=== PATIENT | female | born 1995 | race Caucasian/White ===

== ENCOUNTER 2017-06-26 09:59 | Emergency (ER) | payer MEDICAID, OTHER ==
[~2017-06-26] VITALS: Ht 177.8 cm; Wt 100.0 kg
[~2017-06-26 09:59] MED LIST: DEPO400I IM; SERT100 PO
[2017-06-26 10:05] VITALS: BP 143/81; PULSE 107; RESP 20; TEMP 98.6; O2SAT 98
--- NOTE | 2017-06-26 11:11 | PD ---
HPI Chief Complaint: GI Complaint Time Seen by Provider: 11:11 Travel History International Travel<30 days: No Contact w/Intl Traveler<30days: No Traveled to known affect area: No History of Present Illness HPI 21-year-old female came to the emergency room with history of vomiting and diarrhea that started at midnight last night. She is here with her . Patient says that she has been having vomiting alternating with diarrhea every hour. She has vomited about 6 times and diarrhea 4-5 times. No known sick contacts. Upon asking she said there would be a slight chance of her being . Patient was slightly tachycardic in triage. She is awake and answering questions appropriately. She expresses slight abdominal discomfort mostly associated with vomiting. She is otherwise a healthy person. The discomfort is generalized and nonradiating. [facility] Past Medical History Narrative Medical List of her past medical, surgical, social and family history is reviewed from the nursing note. Diminished Hearing: No ?: Unknown LMP: 05/22/17 Social History Alcohol Use: No Tobacco Use: No Substance Use: No Allergies-Medications (Allergen,Severity, Reaction): Coded Allergies: No Known Allergies (Unverified Adverse Reaction, Unknown, 06/26/17) Comments No known drug allergies. Reported Meds & Prescriptions Reported Meds & Active Scripts Active Zofran Odt (Ondansetron Odt) 4 Mg Tab 4 Mg SL Q6HR PRN Reported Depo-Provera (Medroxyprogesterone Acetate) 400 Mg/Ml Inj 200 Mg IM ONCE Zoloft (Sertraline HCl) 100 Mg Tab 100 Mg PO DAILY Narrative Medication List of her home medications reviewed from the nursing note. Review of Systems Except as stated in HPI: all other systems reviewed are Neg Gastrointestinal: Positive: Nausea, Vomiting, Diarrhea Physical Exam Narrative GENERAL: Awake, alert, mildest SKIN: Focused skin assessment warm/dry. HEAD: Atraumatic. Normocephalic. EYES: Pupils equal and round. No scleral icterus. No injection or drainage. ENT: No nasal bleeding or discharge. Dry mucous membrane. NECK: Trachea midline. No JVD. CARDIOVASCULAR: Regular rate and rhythm. No murmur appreciated. RESPIRATORY: No accessory muscle use. Clear to auscultation. Breath sounds equal bilaterally. GASTROINTESTINAL: Abdomen soft, non-tender, nondistended. Hepatic and splenic margins not palpable. MUSCULOSKELETAL: No obvious deformities. No clubbing. No cyanosis. No edema. NEUROLOGICAL: Awake and alert. No obvious cranial nerve deficits. Motor grossly within normal limits. Normal speech. PSYCHIATRIC: Appropriate mood and affect; insight and judgment normal. Data Data Last Documented VS Orders Orders Basic Metabolic Panel (Bmp) (06/26/17 11:15) Complete Blood Count With Diff (06/26/17 11:15) Iv Access Insert/Monitor (06/26/17 11:15) Ecg Monitoring (06/26/17 11:15) Oximetry (06/26/17 11:15) Ondansetron Inj (Zofran Inj) (06/26/17 11:15) Sodium Chlor 0.9% 1000 Ml Inj (Ns 1000 M (06/26/17 11:15) Sodium Chloride 0.9% Flush (Ns Flush) (06/26/17 11:15) Ed Urine Pregnancytest Poc (06/26/17 11:15) Ed Discharge Order (06/26/17 13:03) Labs Laboratory Tests Test 06/26/17 11:34 White Blood Count 14.3 TH/MM3 Red Blood Count 5.20 MIL/MM3 Hemoglobin 14.5 GM/DL Hematocrit 43.3 % Mean Corpuscular Volume 83.4 FL Mean Corpuscular Hemoglobin 28.0 PG Mean Corpuscular Hemoglobin Concent 33.5 % Red Cell Distribution Width 13.3 % Platelet Count 237 TH/MM3 Mean Platelet Volume 8.4 FL Neutrophils (%) (Auto) 91.3 % Lymphocytes (%) (Auto) 3.6 % Monocytes (%) (Auto) 4.6 % Eosinophils (%) (Auto) 0.1 % Basophils (%) (Auto) 0.4 % Neutrophils # (Auto) 13.1 TH/MM3 Lymphocytes # (Auto) 0.5 TH/MM3 Monocytes # (Auto) 0.7 TH/MM3 Eosinophils # (Auto) 0.0 TH/MM3 Basophils # (Auto) 0.1 TH/MM3 CBC Comment DIFF FINAL Differential Comment Blood Urea Nitrogen 12 MG/DL Creatinine 0.83 MG/DL Random Glucose 98 MG/DL Calcium Level 8.6 MG/DL Sodium Level 137 MEQ/L Potassium Level 3.8 MEQ/L Chloride Level 104 MEQ/L Carbon Dioxide Level 25.2 MEQ/L Anion Gap 8 MEQ/L Estimat Glomerular Filtration Rate 88 ML/MIN [facility] Medical Decision Making Medical Screen Exam Complete: Yes Emergency Medical Condition: Yes Medical Record Reviewed: Yes Differential Diagnosis Acute gastroenteritis, viral illness Narrative Course 12:55 PM patient was given 1 L of IV fluid bolus and Zofran. Patient has not had any more episodes of vomiting or diarrhea. Blood test results are back. White count is slightly elevated which could be from the stress of multiple vomiting and diarrhea. Electrolytes are within normal limit. Patient should be able to go home soon. Procedures EKG Prior to Arrival: No Diagnosis Primary Impression: Acute gastroenteritis Additional Impression: Viral illness Referrals: Primary Care Physician Departure Forms: School Release, Return to School Date: Jun 28, 2017 Tests/Procedures Additional Instructions: Continue taking the medication prescribed to you for nausea and vomiting. You should take clear liquid diet and if he starts tolerating that then you can move on to brat diet which constitutes of banana, rice, applesauce, tea and toast. Return to the ER if condition worsens or any other new concerns. Otherwise follow-up with your primary care. Med/Other Pt SpecificInfo: Prescription(s) given Scripts Ondansetron Odt (Zofran Odt) 4 Mg Tab 4 MG SL Q6HR Y for Nausea/Vomiting, #15 TAB 0 Refills Prov: Azeb Gordon MD 06/26/17 Disposition: 01 DISCHARGE HOME Condition: Stable Azeb Gordon MD Jun 26, 2017 11:11
[2017-06-26] MEDS ORDERED: SODIUM CHLOR 0.9% 1000 ML INJ 1,000 ML IV SCH (11:15)
[2017-06-26] MEDS ORDERED: SODIUM CHLORIDE 0.9% FLUSH 10 ML FLUSH IV FLUSH PRN (11:15)
[2017-06-26] MEDS ORDERED: ONDANSETRON HCL 4 MG/2 ML VIAL IVP ONE (11:15)
[2017-06-26 11:37] VITALS: O2SAT 99
[2017-06-26 11:49] LABS: AUTOMATED NEUTROPHIL # 13.1 TH/MM3 (1.8-7.7); BASOPHIL # 0.1 TH/MM3 (0-0.2); BASOPHIL % 0.4 % (0.0-2.0); EOSINOPHIL % 0.1 % (0.0-4.0); HEMATOCRIT 43.3 % (35.0-46.0); HEMOGLOBIN 14.5 GM/DL (11.6-15.3); LYMPH % 3.6 % (9.0-44.0); LYMPHOCYTE # 0.5 TH/MM3 (1.0-4.8); MEAN CELL VOLUME 83.4 FL (80.0-100.0); MEAN CORPUSCULAR HGB CONC 33.5 % (32.0-36.0); MEAN PLATELET VOLUME 8.4 FL (7.0-11.0); MONO % 4.6 % (0.0-8.0); MONOCYTE # 0.7 TH/MM3 (0-0.9); NEUT % 91.3 % (16.0-70.0); PLATELET COUNT 237 TH/MM3 (150-450); RED CELL DISTRIBUTION WIDTH 13.3 % (11.6-17.2); WHITE BLOOD COUNT 14.3 TH/MM3 (4.0-11.0)
[2017-06-26 12:14] LABS: BICARBONATE 25.2 MEQ/L (21.0-32.0); CALCIUM 8.6 MG/DL (8.5-10.1); CREATININE 0.83 MG/DL (0.50-1.00)
[2017-06-26] MEDS ORDERED: ZOFR4TAB3 SL (12:59)
== END 2017-06-26 13:32 | disposition home or self-care (01) ==
LOC: NEPD 09:59
DX: K52.9 Noninfective gastroenteritis and colitis, unspecified (principal); B34.9 Viral infection, unspecified; R00.0 Tachycardia, unspecified
CPT/HCPCS: 80048; 84703; 85025; 96374; 99284; J2405; J7030